=== PATIENT | male | born 1950 | race Caucasian/White ===

== ENCOUNTER 2019-12-13 07:33 | Day surgery (SDC) | payer MEDICARE, BC ==
[~2019-12-13] VITALS: Ht 177.8 cm; Wt 104.5 kg
[2019-12-13] VITALS (9 sets, daily range): BP systolic 98–121; BP diastolic 50–62
[2019-12-13] MEDS ORDERED: diphenhydrAMINE 25mg capsule PO PRN (08:00)
[2019-12-13] MEDS ORDERED: normal saline 1,000 ML IV SCH (08:00)
[2019-12-13] MEDS ORDERED: PANT-47 PO (08:02)
[2019-12-13] MEDS ORDERED: CELE-193 PO (08:02)
[2019-12-13] MEDS ORDERED: LISI10TA4 PO (08:02)
[2019-12-13] MEDS ORDERED: TEST200V10 IM (08:02)
[2019-12-13] MEDS ORDERED: cipro PO (08:03)
[2019-12-13] MEDS ORDERED: Flagyl PO (08:03)
[2019-12-13 08:35] LABS: BASOPHILS # (AUTO) 0.1 X10'3 (0-0.2); EOSINOPHILS # (AUTO) 0.1 X10'3 (0-0.9); EOSINOPHILS % (AUTO) 2.6 % (0-6); HEMATOCRIT 43.7 % (42.0-52.0); HEMOGLOBIN 15.1 g/dl (14.0-17.9); LYMPHOCYTES # (AUTO) 1.1 X10'3 (1.1-4.8); LYMPHOCYTES % (AUTO) 19.7 % (21-51); MEAN CORPUSCULAR HEMOGLOBIN 30.9 PG (27.0-31.0); MEAN CORPUSCULAR HGB CONC 34.7 g/dL (33.0-36.5); MEAN PLATELET VOLUME 8.5 FL (7.4-10.4); MONOCYTES # (AUTO) 0.6 X10'3 (0-0.9); MONOCYTES % (AUTO) 10.3 % (2-12); NEUTROPHILS # (AUTO) 3.7 X10'3 (1.8-7.7); NEUTROPHILS % (AUTO) 66.4 % (42-75); PLATELET COUNT 267 X10'3 (140-440); RED CELL DISTRIBUTION WIDTH 13.2 % (11.5-14.5); WHITE BLOOD COUNT 5.6 X10'3 (4.5-11.0)
[2019-12-13] MEDS ORDERED: midazolam 2 mg/2 ml injection ONE ×3 (08:40→09:50)
[2019-12-13] MEDS ORDERED: iohexol 350 MG/ML 50ML vial IV ONE ×2 (08:40→10:01)
[2019-12-13] MEDS ORDERED: fentaNYL/PF 50MCG/1 ML 2ML syringe ONE ×2 (08:40→09:50)
[2019-12-13] MEDS ORDERED: LIDOcaine 1% (10mg/ml)w/preservative injection 20ml MDV ONE (08:40)
[2019-12-13] MEDS ORDERED: iohexol 350MG/ML 100ml bottle IV ONE (08:41)
[2019-12-13 08:50] LABS: ALBUMIN 3.8 G/DL (3.4-5.0); ANION GAP 11 (8-16); BLOOD UREA NITROGEN 18 MG/DL (7-18); BUN/CREATININE RATIO 14.2 (5.4-32.0); CALCIUM 9.1 MG/DL (8.5-10.1); CHLORIDE 103 MMOL/L (99-107); CREATININE 1.27 MG/DL (0.60-1.10); GLUCOSE 105 MG/DL (70-104); MAGNESIUM 2.1 MG/DL (1.5-2.4); POTASSIUM 4.2 MMOL/L (3.5-5.1); SODIUM 139 MMOL/L (135-145); eGFR 56 ML/MIN
[2019-12-13] MEDS ORDERED: proCHLORperazine 10 MG/2 ml inj ONE (09:35)
[2019-12-13] MEDS ORDERED: normal saline 1000ml 1,000 ML IV SCH (10:45)
== END 2019-12-13 13:40 | disposition home or self-care (01) ==
LOC: SSTAY O 07:33
PROVIDERS: ATTEND Internal Medicine Cardiovascular Disease
DX: R94.39 Abnormal result of other cardiovascular function study (principal); I25.10 Atherosclerotic heart disease of native coronary artery without angina pectoris; I10 Essential (primary) hypertension; E78.5 Hyperlipidemia, unspecified; K21.9 Gastro-esophageal reflux disease without esophagitis; I47.1 Supraventricular tachycardia; Z79.899 Other long term (current) drug therapy; Z98.890 Other specified postprocedural states; Z88.5 Allergy status to narcotic agent
CPT/HCPCS: 36415; 80048; 83735; 85025; 85610; 93005; 93458; 99152; 99153; C1769; C1894; J0780; J1644; J2001; J2250; J3010; J7030; Q0163; Q9967; A4620; A6258; C1751; C1760

== ENCOUNTER 2019-12-30 11:54 | Day surgery (SDC) | payer MEDICARE, BC ==
[2019-12-30] VITALS (9 sets, daily range): BP systolic 103–135; BP diastolic 55–87
[~2019-12-30] VITALS: Ht 177.8 cm; Wt 107.6 kg
[~2019-12-30 11:54] MED LIST: CELE-193 PO; Flagyl PO; LISI10TA4 PO; PANT-47 PO; TEST200V10 IM; cipro PO
[2019-12-30] MEDS ORDERED: normal saline 1,000 ML IV SCH (12:10)
[2019-12-30] MEDS ORDERED: diphenhydrAMINE 25mg capsule PO PRN (12:10)
[2019-12-30] MEDS ORDERED: lopressor (12:20)
[2019-12-30] MEDS ORDERED: Magnesium (12:20)
[2019-12-30] MEDS ORDERED: FLUT16SP2 BOTHNARES (12:20)
[2019-12-30 12:40] LABS: BASOPHILS % (AUTO) 0.6 % (0-1); EOSINOPHILS # (AUTO) 0.1 X10'3 (0-0.9); EOSINOPHILS % (AUTO) 1.9 % (0-6); HEMATOCRIT 44.9 % (42.0-52.0); HEMOGLOBIN 15.2 g/dl (14.0-17.9); LYMPHOCYTES # (AUTO) 1.6 X10'3 (1.1-4.8); LYMPHOCYTES % (AUTO) 30.7 % (21-51); MEAN CORPUSCULAR VOLUME 88.4 FL (78-98); MEAN PLATELET VOLUME 8.8 FL (7.4-10.4); MONOCYTES # (AUTO) 0.4 X10'3 (0-0.9); MONOCYTES % (AUTO) 7.9 % (2-12); NEUTROPHILS # (AUTO) 3.1 X10'3 (1.8-7.7); NEUTROPHILS % (AUTO) 58.9 % (42-75); PLATELET COUNT 279 X10'3 (140-440); RED BLOOD COUNT 5.07 X10'6 (4.70-6.10); RED CELL DISTRIBUTION WIDTH 13.7 % (11.5-14.5); WHITE BLOOD COUNT 5.3 X10'3 (4.5-11.0)
[2019-12-30 12:41] LABS: ALBUMIN 4.2 G/DL (3.4-5.0); ANION GAP 10 (8-16); BLOOD UREA NITROGEN 21 MG/DL (7-18); BUN/CREATININE RATIO 20.6 (5.4-32.0); CALCIUM 8.9 MG/DL (8.5-10.1); CHLORIDE 105 MMOL/L (99-107); CREATININE 1.02 MG/DL (0.60-1.10); GLUCOSE 91 MG/DL (70-104); MAGNESIUM 2.1 MG/DL (1.5-2.4); POTASSIUM 4.8 MMOL/L (3.5-5.1); SODIUM 140 MMOL/L (135-145); TOTAL CARBON DIOXIDE 25.3 MMOL/L (24-32); eGFR 72 ML/MIN
[2019-12-30] MEDS ORDERED: METO-395 PO (13:57)
[2019-12-30] MEDS ORDERED: fentaNYL/PF 50MCG/1 ML 2ML syringe ONE ×2 (14:45→15:18)
[2019-12-30] MEDS ORDERED: heparin 1,000unit/ml 10ml vial 10 ML ONE (14:45)
[2019-12-30] MEDS ORDERED: LIDOcaine 1% (10mg/ml)w/preservative injection 20ml MDV ONE (14:45)
[2019-12-30] MEDS ORDERED: midazolam 2 mg/2 ml injection ONE ×3 (14:45→15:18)
[2019-12-30] MEDS ORDERED: iohexol 350 MG/1 ML 200ml bottle ONE (14:46)
[2019-12-30] MEDS ORDERED: nitroGLYCERIN-Tridil 50MG/D5W 250 ML IV ONE (15:48)
[2019-12-30] MEDS ORDERED: clopidogrel 300mg tablet ONE (15:53)
[2019-12-30] MEDS ORDERED: HYDROcodone/acetaminophen 10/325mg tab PO PRN (16:30)
[2019-12-30] MEDS ORDERED: proCHLORperazine 10 MG/2 ml inj IV PRN (16:30)
[2019-12-30] MEDS ORDERED: normal saline 1000ml 1,000 ML IV SCH (16:30)
[2019-12-30] MEDS ORDERED: ondansetron/PF 4mg/2ml inj IV PRN (16:30)
[2019-12-30] MEDS ORDERED: HYDROcodone/acetaminophen 5mg/325mg tablet PO PRN (16:30)
== END 2019-12-30 19:30 | disposition home or self-care (01) ==
LOC: SSTAY O 11:54
PROVIDERS: ATTEND Internal Medicine Cardiovascular Disease
DX: R94.30 Abnormal result of cardiovascular function study, unspecified (principal); I25.10 Atherosclerotic heart disease of native coronary artery without angina pectoris; R07.9 Chest pain, unspecified; K21.9 Gastro-esophageal reflux disease without esophagitis; E78.5 Hyperlipidemia, unspecified; Z98.890 Other specified postprocedural states; Z82.49 Family history of ischemic heart disease and other diseases of the circulatory system; Z80.9 Family history of malignant neoplasm, unspecified; F12.90 Cannabis use, unspecified, uncomplicated; I10 Essential (primary) hypertension
CPT/HCPCS: 36415; 80048; 83735; 85025; 85610; 99152; 99153; C1769; C1874; C1894; C9600; C9601; J1644; J2001; J2250; J3010; J7030; Q0163; Q9967; 93005; A4620; A6258; C1760; J3490

== ENCOUNTER 2024-07-12 08:24 | Day surgery (SDC) | payer MEDICARE, BC ==
[2024-07-12] VITALS (10 sets, daily range): BP systolic 107–142; BP diastolic 58–93; PULSE 45–53; RESP 13–20; TEMP 98; O2SAT 93–98
[~2024-07-12] VITALS: Ht 177.8 cm; Wt 97.7 kg
[~2024-07-12 08:24] MED LIST changes: +FLUT16SP2 BOTHNARES; -Flagyl PO; +LISI10TA27 PO; -LISI10TA4 PO; +METO-395 PO; +Magnesium; -TEST200V10 IM; +TEST200V33 IM; -cipro PO
[2024-07-12] MEDS ORDERED: HYDR-3972 PO (08:36)
[2024-07-12] MEDS ORDERED: ATOR40TA72 PO (08:36)
[2024-07-12] MEDS ORDERED: [UNRECOGNIZED DRUG - OTHER] (08:40)
[2024-07-12] MEDS ORDERED: ASPI-611 PO (08:40)
[2024-07-12 08:53] LABS: BASOPHILS % (AUTO) 0.3 % (0-1); EOSINOPHILS # (AUTO) 0.1 X10'3 (0-0.9); EOSINOPHILS % (AUTO) 1.5 % (0-6); HEMATOCRIT 45.5 % (42.0-52.0); HEMOGLOBIN 15.5 g/dl (14.0-17.9); LYMPHOCYTES # (AUTO) 1.2 X10'3 (1.1-4.8); LYMPHOCYTES % (AUTO) 16.3 % (21-51); MEAN CORPUSCULAR HEMOGLOBIN 31.6 PG (27.0-31.0); MEAN CORPUSCULAR HGB CONC 34.1 g/dL (33.0-36.5); MEAN CORPUSCULAR VOLUME 92.8 FL (78-98); MEAN PLATELET VOLUME 8.3 FL (7.4-10.4); MONOCYTES # (AUTO) 0.5 X10'3 (0-0.9); MONOCYTES % (AUTO) 7.2 % (2-12); NEUTROPHILS # (AUTO) 5.3 X10'3 (1.8-7.7); NEUTROPHILS % (AUTO) 74.7 % (42-75); PLATELET COUNT 262 X10'3 (140-440); RED CELL DISTRIBUTION WIDTH 13.2 % (11.5-14.5); WHITE BLOOD COUNT 7.1 X10'3 (4.5-11.0)
[2024-07-12 08:56] LABS: PROTHROMBIN TIME 10.3 SECONDS (9.0-12.0)
[2024-07-12 09:03] LABS: ANION GAP 6 (8-16); BLOOD UREA NITROGEN 18 MG/DL (7-18); BUN/CREATININE RATIO 18.6 (10.0-20.0); CALCIUM 9.1 MG/DL (8.5-10.1); CHLORIDE 104 MMOL/L (99-107); CREATININE 0.97 MG/DL (0.60-1.10); GLUCOSE 110 MG/DL (70-104); POTASSIUM 4.4 MMOL/L (3.5-5.1); SODIUM 138 MMOL/L (135-145); TOTAL CARBON DIOXIDE 27.9 MMOL/L (24-32); eCRCL 69 ML/MIN; eGFR 76 ML/MIN
[2024-07-12] MEDS: diphenhydrAMINE 25mg capsule PO PRN (09:44)
[2024-07-12] MEDS: sodium bicarbonate 1meq/ml syr 150 ML in dextrose 5%-water 1,000 ML IV ONE (09:44)
[2024-07-12] MEDS: normal saline 1,000 ML IV SCH (09:44)
[2024-07-12] MEDS ORDERED: heparin 1,000unit/ml 10ml vial 10 ML ONE (10:28)
[2024-07-12] MEDS ORDERED: iohexol 350MG/ML 100ml bottle IV ONE ×2 (10:28→11:24)
[2024-07-12] MEDS ORDERED: verapamil 2.5 mg/ml inj IV ONE (10:28)
[2024-07-12] MEDS ORDERED: midazolam 1 mg/ML 2ml injection ONE ×4 (10:28→11:04)
[2024-07-12] MEDS ORDERED: LIDOcaine 1% (10mg/ml) 2ml vial ONE (10:28)
[2024-07-12] MEDS ORDERED: iohexol 350 MG/ML 50ML vial IV ONE (10:28)
[2024-07-12] MEDS ORDERED: fentaNYL/PF 50MCG/1 ML 2ML syringe ONE (10:28)
[2024-07-12] MEDS ORDERED: nitroGLYCERIN 500mcg/5mL D5W 5 ML IV ONE (10:29)
[2024-07-12] MEDS ORDERED: proCHLORperazine 10 MG/2 ml inj IV PRN (12:40)
[2024-07-12] MEDS ORDERED: ondansetron/PF 4mg/2ml inj IV PRN (12:40)
[2024-07-12] MEDS ORDERED: HYDROcodone/acetaminophen 10/325mg tab PO PRN (12:40)
[2024-07-12] MEDS ORDERED: HYDROcodone/acetaminophen 5mg/325mg tablet PO PRN (12:40)
== END 2024-07-12 14:50 | disposition home or self-care (01) ==
LOC: SSTAY O 08:24
PROVIDERS: ATTEND Internal Medicine Cardiovascular Disease
DX: I25.118 Atherosclerotic heart disease of native coronary artery with other forms of angina pectoris (principal); I47.19 Other supraventricular tachycardia; I10 Essential (primary) hypertension; E78.5 Hyperlipidemia, unspecified; K21.9 Gastro-esophageal reflux disease without esophagitis; F12.90 Cannabis use, unspecified, uncomplicated; Z87.891 Personal history of nicotine dependence; Z79.82 Long term (current) use of aspirin; Z79.891 Long term (current) use of opiate analgesic; Z79.899 Other long term (current) drug therapy; Z95.5 Presence of coronary angioplasty implant and graft; Z98.890 Other specified postprocedural states; Z88.5 Allergy status to narcotic agent; Z82.49 Family history of ischemic heart disease and other diseases of the circulatory system
CPT/HCPCS: 36415; 80048; 83735; 85025; 85610; 93005; 93458; 99152; 99153; A6258; A6402; C1769; C1894; J1644; J2001; J2250; J3010; J3490; J7030; J7070; Q0163; Q9967; Z7610; A6449